=== PATIENT | male | born 1985 | race African-American/Black ===

== ENCOUNTER 2018-10-04 15:19 | Emergency (ER) | payer SELFPAY ==
[2018-10-04] MEDS ORDERED: Ketorolac 60 MG/2 ML SDV IM ONE (15:40)
--- NOTE | 2018-10-04 15:42 | EDM.PDOC ---
ED HPI GENERAL MEDICAL PROBLEM - General Chief Complaint: Upper Extremity Injury/Pain Stated Complaint: INJURED RT SHOULDER Time Seen by Provider: 10/04/18 15:37 Source of Information: Reports: Patient History Limitations: Reports: No Limitations - History of Present Illness INITIAL COMMENTS - FREE TEXT/NARRATIVE: HISTORY AND PHYSICAL: History of present illness: Patient is a 32-year-old male presents to the ED today with concern of right shoulder and right knee pain after an injury that occurred at work today. Patient states he was crawling up into a semi and had slipped a little bit and caught himself twisted his right knee and hurt his right shoulder. Patient states he has been able to walk and use his arms accordingly without deficit or difficulty but has pain every once in a while in his right knee and his right shoulder. Patient denies any prior injury to either area. Patient denies any other symptoms. Patient denies fever, chills, chest pain, shortness of breath, or cough. Denies headache, neck stiff ness, change in vision, syncope, or near syncope. Denies nausea, vomiting, abdominal pain, diarrhea, constipation, or dysuria. Has not noted any blood in urine or stool. Patient has been eating and drinking appropriately. Review of systems: As per history of present illness and below otherwise all systems reviewed and negative. Past medical history: As per history of present illness and as reviewed below otherwise noncontributory. Surgical history: As per history of present illness and as reviewed below otherwise noncontributory. Social history: See social history for further information Family history: As per history of present illness and as reviewed below otherwise noncontributory. Physical exam: General: Patient is alert, oriented, and in no acute distress. Patient sitting comfortably on exam table. HEENT: Atraumatic, normocephalic, pupils equal and reactive bilaterally, negative for conjunctival pallor or scleral icterus, mucous membranes moist, TMs normal bilaterally, throat clear, neck supple, nontender, trachea midline. No drooling or trismus noted. No meningeal signs. No hot potato voice noted. Lungs: Clear to auscultation, breath sounds equal bilaterally, chest nontender. Heart: S1S2, regular rate and rhythm without overt murmur Abdomen: Soft, nondistended, nontender. Negative for masses or hepatosplenomegaly. Negative for costovertebral tenderness. Pelvis: Stable nontender. Genitourinary: Deferred. Rectal: Deferred. Skin: Intact, warm, dry. No lesions or rashes noted. Extremities: Atraumatic, negative for cords or calf pain. Neurovascular unremarkable. Full range of motion of bilateral upper extremities and lower extremity without deficit pain. No obvious deformity of upper or lower extremity. Radial pulses grossly intact of bilateral upper extremities. Dorsalis pedis and posterior tibial pulses grossly intact of bilateral lower extremities. Neuro: Awake, alert, oriented. Cranial nerves II through XII unremarkable. Cerebellum unremarkable. Motor and sensory unremarkable throughout. Exam nonfocal. Notes: Discussed the importance for follow-up with his primary care provider or an orthopedic provider. Voices understanding and is agreeable to plan of care. Denies any further questions or concerns at this time. Diagnostics: Shoulder x-ray, and x-ray Therapeutics: Toradol (patient declines) Prescription: Diclofenac Impression: Right shoulder injury Right knee injury Plan: 1. Rest, ice, elevate the affected extremity. You can apply ice 15 minutes on, 15 minutes off. 2. Tylenol as directed for pain management or discomfort. Take medication as prescribed. 3. Follow up with the Orthopedic provider / primary care provider as discussed. Return to the ED as needed and as discussed. Definitive disposition and diagnosis as appropriate pending reevaluation and review of above. - Related Data Allergies Allergy/AdvReac Type Severity Reaction Status Date / Time No Known Allergies Allergy Verified 04/11/18 18:05 Home Meds: Home Meds Diclofenac Sodium [Voltaren] 75 mg PO BIDMEALS PRN #10 tab.cr 10/04/18 [Rx] Past Medical History - Past Health History Medical/Surgical History: Denies Medical/Surgical History HEENT History: Reports: Sinusitis - Past Surgical History Musculoskeletal Surgical History: Reports: Other (See Below) Other Musculoskeletal Surgeries/Procedures:: Right Femur surgery Social & Family History - Family History Family Medical History: Noncontributory Cardiac: Reports: Hypertension Endocrine/Metabolic: Reports: Diabetes, Type I Oncologic: Reports: Brain - Tobacco Use Smoking Status *Q: Never Smoker - Recreational Drug Use Recreational Drug Use: No Review of Systems - Review of Systems Review Of Systems: ROS reveals no pertinent complaints other than HPI. ED EXAM, GENERAL - Physical Exam Exam: See Below (See dictation) Course - Vital Signs Last Recorded V/S: Last Vital Signs Temp 36.3 C 10/04/18 15:34 Pulse 55 L 10/04/18 15:34 Resp 16 10/04/18 15:34 BP 134/63 10/04/18 15:34 Pulse Ox 100 10/04/18 15:34 - Orders/Labs/Meds Meds: Medications Discontinued Medications Generic Name Dose Route Start Last Admin Trade Name Freq PRN Reason Stop Dose Admin Ketorolac Tromethamine 60 mg 10/04/18 15:40 10/04/18 15:58 Toradol IM 10/04/18 15:41 Not Given ONETIME ONE Departure - Departure Time of Disposition: 16:21 Disposition: Home, Self-Care 01 Clinical Impression: Right shoulder injury Qualifiers: Encounter type: initial encounter Qualified Code(s): S49.91XA - Unspecified injury of right shoulder and upper arm, initial encounter Right knee injury Qualifiers: Encounter type: initial encounter Qualified Code(s): S89.91XA - Unspecified injury of right lower leg, initial encounter - Discharge Information Prescriptions: Diclofenac Sodium [Voltaren] 75 mg PO BIDMEALS PRN #10 tab.cr PRN Reason: Pain Referrals: PCP,None [Primary Care Provider] - Forms: ED Department Discharge Additional Instructions: The following information is given to patients seen in the emergency department who are being discharged to home. This information is to outline your options for follow-up care. We provide all patients seen in our emergency department with a follow-up referral. The need for follow-up, as well as the timing and circumstances, are variable depending upon the specifics of your emergency department visit. If you don't have a primary care physician on staff, we will provide you with a referral. We always advise you to contact your personal physician following an emergency department visit to inform them of the circumstance of the visit and for follow-up with them and/or the need for any referrals to a consulting specialist. The emergency department will also refer you to a specialist when appropriate. This referral assures that you have the opportunity for follow-up care with a specialist. All of these measure are taken in an effort to provide you with optimal care, which includes your follow-up. Under all circumstances we always encourage you to contact your private physician who remains a resource for coordinating your care. When calling for follow-up care, please make the office aware that this follow-up is from your recent emergency room visit. If for any reason you are refused follow-up, please contact the [facility] Emergency Department at and asked to speak to the emergency department charge nurse. [facility] [address] [place] [address] [address] [facility] [place] [facility] [address] [place] [address], [address] [place] [address] 1. Rest, ice, elevate the affected extremity. You can apply ice 15 minutes on, 15 minutes off. 2. Tylenol as directed for pain management or discomfort. Take medication as prescribed. 3. Follow up with the Orthopedic provider / primary care provider as discussed. Return to the ED as needed and as discussed.
--- NOTE | 2018-10-04 16:20 | CR ---
INDICATION: Pain. TECHNIQUE: Three views right knee. FINDINGS: No acute fracture or joint effusion. Joint spaces are maintained. No other bony abnormality. IMPRESSION: Negative right knee. Dictated by Anne Marie Rodriguez MD @ Oct 04 2018 4:17PM Signed by Dr. Anne Marie Rodriguez @ Oct 04 2018 4:18PM
--- NOTE | 2018-10-04 16:20 | CR ---
INDICATION: Pain following an injury. TECHNIQUE: Two-views right shoulder. FINDINGS: No acute fracture, dislocation, or other bony abnormality. IMPRESSION: Negative right shoulder. Dictated by Anne Marie Rodriguez MD @ Oct 04 2018 4:18PM Signed by Dr. Anne Marie Rodriguez @ Oct 04 2018 4:19PM
== END 2018-10-04 16:40 | disposition home or self-care (01) ==
LOC: MW.ED 15:19
DX: S49.91XA Unspecified injury of right shoulder and upper arm, initial encounter (principal); S89.91XA Unspecified injury of right lower leg, initial encounter; Y99.0 Civilian activity done for income or pay; X50.1XXA Overexertion from prolonged static or awkward postures, initial encounter
CPT/HCPCS: 73030-26-RT; 73030-RT; 73562-26-RT; 73562-RT; 99283-25

== ENCOUNTER 2022-12-07 18:50 | Emergency (ER) | payer SELFPAY | END 2022-12-07 20:44 | disposition home or self-care (01) | LOC: MW.ED 18:50 | DX: U07.1 COVID-19 (principal) | CPT/HCPCS: 99283; 99284; U0002 ==